=== PATIENT | male | born 1960 | race Caucasian/White ===

== ENCOUNTER → 2016-03-15 | Outpatient (CLI) | payer MEDICAID ==
[~2016-03-15] MED LIST: CIPRO 500MG TA500 MG PO; KEFLEX 500MG.500 MG PO; PREDNISONE 20MG20 MG PO; TESSALON PERLE100 MG PO; TORADOL10 MG PO; ULTRAM50 MG PO
--- NOTE | 2016-03-15 22:13 | RADIOLOGY REPORT PS360 ---
LOWER LEG-LT ORDERING PHYSICIAN : IAN JOY MD PATIENT AGE: 55 years GENDER: Male INDICATION: S/P LT TIBIAL PLATEAU FX TECHNIQUE: Two-view left lower leg COMPARISON: 2 views left knee 11/27/2015 FINDINGS Tibia and fibula are intact. No fracture. No periosteal reaction. Soft tissues unremarkable on plain film. 2 views of the included ankle appears satisfactory. 2 views of the included knee show no prominent findings. note that there is a very subtle lucent line passing obliquely through the proximal most aspect of the proximal fibula on lateral view. I initially questioned hairline fracture but I would note that the same appearance in November 2015 lateral knee radiograph, with no additional sclerosis or healing to suggest a healing fracture. However Requires clinical correlation. Since no change in may merely reflect a subtle artifact line or overlapping soft tissue line projected over this area. Also note the October 2015 MRI left knee showed other injuries but no abnormality in this region at the proximal margin of fibula. IMPRESSION: -------- 1.. The tibia and fibula shaft appear intact. No periosteal reaction or findings. Distal most tibia & fibula are intact as well. 2. On lateral view left knee shows no very subtle thin lucent line passing obliquely through the proximal most aspect of the fibula. But most likely artifact line . (initially question a possible subtle hairline fracture, but would have expected some interval sclerosis healing changes since 2015 radiograph if this were the case,. Thus may merely be artifact line. If point tenderness here, this may may warrant further consideration)
--- NOTE | 2016-03-17 06:53 | RADIOLOGY REPORT PS360 ---
FOOT-RT-3 VIEWS ORDERING PHYSICIAN : IAN JOY MD PATIENT AGE: 55 years GENDER: Male INDICATION: S/P RT FOOT FX TECHNIQUE: 3 views right foot COMPARISON: February 01, 2016 FINDINGS The fracture transversing the proximal fifth metatarsal is again noted. The fracture line proximal fifth metatarsal persists and has become more evident laterally-now measuring just over 1 mm wide at its lateral aspect.. Although this may reflect some resorption there appears to be Incomplete osseous union at the lateral aspect this fracture.. Warrants ongoing follow-up. Minimal incomplete callus formation laterally. Soft tissue Swelling laterally. There is mild sclerosis and suggestion of early healing medial aspect fracture along the medial aspect of this fracture. Remaining metatarsals intact Is some attempted callus formation developing laterally. Tarsals unremarkable. Mild joint space narrowing at IP joints. Subtle Mild degenerative changes IP joint and first MTP joint. . IMPRESSION: ................................... Transverse fracture proximal fifth metatarsal again noted. Fracture line is more evident and appears slightly wider laterally on today's study. Incomplete osseous healing as of yet at lateral aspect of fracture trauma follow-up
== END ==
LOC: RAD 10:02
DX: S92.901A Unspecified fracture of right foot, initial encounter for closed fracture (principal); S82.142A Displaced bicondylar fracture of left tibia, initial encounter for closed fracture

== ENCOUNTER → 2016-11-16 | Outpatient (CLI) | payer MEDICAID ==
[2016-11-17 08:43] LABS: RA Latex Turbid. <10.0 IU/mL (0.0-13.9)
[2016-11-17 16:40] LABS: Albumin 3.8 g/dL (2.9-4.4); Alpha-1-Globulin 0.3 g/dL (0.0-0.4); Alpha-2-Globulin 0.8 g/dL (0.4-1.0); Gamma Globulin 0.9 g/dL (0.4-1.8); Protein, Total 6.8 g/dL (6.0-8.5)
[2016-11-17 18:37] LABS: Antinuclear Antibodies, IFA Negative (.)
== END ==
LOC: LAB 13:13
PROVIDERS: Emergency Medicine
DX: M79.605 Pain in left leg (principal)

== ENCOUNTER → 2017-01-19 | Outpatient (CLI) | payer MEDICAID ==
--- NOTE | 2017-01-20 07:21 | RADIOLOGY REPORT PS360 ---
MRI-L-SPINE W/O, MRI-3D RENDERING/MYELOGRAM HISTORY: Left leg numbness with back pain BACK PAIN ORDERING PHYSICIAN: Timoteo Dalal MD PATIENT AGE: 56 years COMPARISON: None TECHNIQUE: Standard multiplanar multiecho sequences are performed without contrast. 3-D MIP and myelographic images are also rendered and reviewed FINDINGS: There is normal alignment. Spinal cord ends at the L1-L2 level. There is some minimal endplate irregularity at T11-L2. The disc spaces are well-preserved. There is slight decrease in the disc space at L2-L3. L3-L4 and L4-L5 have an unremarkable appearance. L5-S1: Minimal curvilinear increased T2 signal involves the right paracentral aspect of the disc suggesting a small annular tear with minimal disc bulge. No impingement. No extruded herniated disc or canal stenosis. IMPRESSION: 1. Mild degenerative changes of the lumbar spine as detailed above. 2. Suspect small annular tear at L5-S1 with minimal bulging disc. 3. No canal stenosis, extruded herniated disc, or neural impingement evident
== END ==
LOC: RAD 13:40
DX: M54.5 Low back pain (principal)